=== PATIENT | female | born 1985 | race Caucasian/White ===

== ENCOUNTER 2018-12-06 14:06 | Emergency (ER) | payer OTHER, SELFPAY ==
[2018-12-06 14:29] VITALS: BP 108/77; PULSE 79; RESP 15; TEMP 36.8; O2SAT 99; BMI 22.1
== END 2018-12-06 16:26 | disposition left against medical advice (07) ==
PROVIDERS: Emergency Provider Emergency Medicine; Family Provider Obstetrics & Gynecology
DX: Z53.21 Procedure and treatment not carried out due to patient leaving prior to being seen by health care provider (principal)
CPT/HCPCS: 99282

== ENCOUNTER 2019-03-27 17:53 | Emergency (ER) | payer OTHER, SELFPAY ==
[2019-03-27 17:58] VITALS: BP 134/78; PULSE 80; RESP 20; TEMP 37; O2SAT 98
--- NOTE | 2019-03-27 18:22 | ED_ITS ---
HPI - Back Pain/Injury General Chief Complaint: Back Pain/Injury Stated Complaint: BACK PAIN Time Seen by Provider: 03/27/19 17:58 Source: patient Mode of arrival: ambulatory Limitations: no limitations History of Present Illness HPI Narrative: 33-year-old female. She is . She is a . States she has had left-sided back pain radiating down her left leg for the past several days. She has had similar symptoms to this in the past even when she was not . She has been taking Tylenol. She states she does have a prescription for muscle relaxers given to her by her primary provider. She has seen her Ob since the onset of the symptoms. She states she really did not talk to her OB provider about the symptoms. She is not having any urinary symptoms. No loss of bowel or bladder. No vaginal bleeding. No fevers. Related Data Home Medications Medication Instructions Recorded Confirmed omeprazole 20 mg PO BID #0 10/13/16 12/06/18 ibuprofen 800 mg PO TIDP PRN #0 10/23/16 venlafaxine [Effexor XR] #0 08/12/17 levothyroxine [Synthroid] 50 mcg PO DAILY 12/06/18 12/06/18 Previous Rx's Medication Instructions Recorded cyclobenzaprine 10 mg PO TID PRN #14 tab 03/27/19 hydrocodone-acetaminophen [[place]] 1 tab PO Q4-6H PRN #10 tab 03/27/19 Allergies Allergy/AdvReac Type Severity Reaction Status Date / Time No Known Drug Allergies Allergy Verified 12/06/18 14:29 Review of Systems Constitutional Denies fever(s), Denies headache(s) and Denies weakness ENT Ears, Nose, Mouth, and Throat: Denies vertigo, Denies headache(s) and Denies disequilibrium Cardiovascular Denies chest pain and Denies dyspnea Respiratory Denies dyspnea Gastrointestinal Gastrointestinal: Denies abdominal pain, Denies nausea and Denies vomiting Genitourinary Denies difficulty voiding, Denies dysuria, Denies pelvic pain, Denies urinary hesitancy, Denies urinary urgency and Denies vaginal discharge Musculoskeletal Reports abnormal gait, Reports back pain, Denies myalgias and Denies arthralgias Integumentary/Breasts Denies lesions and Denies rash Neurologic Reports abnormal gait, Denies behavioral changes, Denies vertigo, Denies headache(s), Reports radicular pain, Denies disequilibrium and Denies weakness Psychiatric Denies behavioral changes Hematologic/Lymphatic Denies easy bleeding and Denies easy bruising [facility] Medical History Hypothyroid (Acute) Social History Smoking Status: Current every day smoker Social History Smoking Status: Current every day smoker Exam Initial Vital Signs Initial Vital Signs: Vital Signs Temperature 98.6 F 03/27/19 17:58 Pulse Rate 80 03/27/19 17:58 Respiratory Rate 20 03/27/19 17:58 Blood Pressure 134/78 03/27/19 17:58 Pulse Oximetry 98 03/27/19 17:58 Const General: well developed, well groomed and No acute distress Orientation: alert and oriented x3 HENMT Head: normal to inspection and normocephalic Resp Effort & Inspection: normal respiratory effort Cardio Rate: regular rate Back/Spine/Pelvis Thoracic/Lumbar Spine: paraspinal tenderness and No lumbar spinal tenderness Skin Lesions: no lesions Rashes: no rashes Neuro General: alert, awake and oriented x3 Cognition: normal cognition Speech: speech normal Motor: muscle tone normal throughout Sensory Exam: no sensory deficits noted Extrem General: normal to inspection and capillary refill normal Psych Appearance: grossly normal and well kempt Course Vital Signs - 8 hr 03/27/19 17:58 Temperature 98.6 F Pulse Rate 80 Respiratory Rate 20 Blood Pressure 134/78 Pulse Oximetry 98 MDM - Back Pain/Injury MDM Narrative Medical decision making narrative: Patient does have limited options with medication given her status. We did discuss Tylenol. According to my medicine source cyclobenzaprine is a class B medication in . Will also send home with a short course of pain medication. Have her follow up with her OB provider and also her primary provider. She has no signs of cauda equina. Low suspicion for fracture. Patient was given return precautions and follow-up instructions. She expressed understanding and agreement plan. Discharge Plan Departure Patient Disposition: Home Clinical Impression: Lumbar radiculopathy Discharge Date/Time: 03/27/19 18:36 Interventions: ED Discharge Assessment Last Done: 08/21/19 18:36 Instructions: DI for Low Back Pain, DI for Muscle Strain Activity Restrictions/Additional Instructions: I do recommend you contact her primary provider and her OB provider to discuss other potential modalities to help your back pain. take the medications as directed. Like we discussed there is limited data supporting the use the Flexeril however generally is considered safe. Return to the emergency department for any new or worsening symptoms Prescriptions: New cyclobenzaprine 10 mg tablet 10 mg PO TID PRN (Reason: muscle spasm) Qty: 14 RF: 0 hydrocodone-acetaminophen [[place]] 5-325 mg tablet 1 tab PO Q4-6H PRN (Reason: pain) Qty: 10 RF: 0 No Action omeprazole 20 MG capsule,delayed release(DR/EC) 20 mg PO BID Qty: 0 RF: 0 ibuprofen 800 MG tablet 800 mg PO TIDP PRNQty: 0 RF: 0 venlafaxine [Effexor XR] 37.5 MG capsule,extended release 24hr Qty: 0 RF: 0 levothyroxine [Synthroid] 50 mcg tablet 50 mcg PO DAILY RF: 0
== END 2019-03-27 18:36 | disposition home or self-care (01) ==
PROVIDERS: Emergency Provider Emergency Medicine; Family Provider Obstetrics & Gynecology
DX: M54.16 Radiculopathy, lumbar region (principal)
CPT/HCPCS: 99282